=== PATIENT | female | born 1970 | race Caucasian/White ===

== ENCOUNTER 2024-09-06 09:14 | Emergency (ER) | payer OTHER ==
[~2024-09-06] VITALS: Ht 175.3 cm; Wt 124.7 kg
[2024-09-06 09:36] VITALS: PULSE 62; RESP 18; TEMP 98.9; O2SAT 96
== END 2024-09-06 12:25 | disposition home or self-care (01) ==
LOC: ER 09:28
DX: M25.561 Pain in right knee (principal); I10 Essential (primary) hypertension; E78.5 Hyperlipidemia, unspecified; E03.9 Hypothyroidism, unspecified; K21.9 Gastro-esophageal reflux disease without esophagitis; Z86.711 Personal history of pulmonary embolism; Z86.718 Personal history of other venous thrombosis and embolism
CPT/HCPCS: 93971; 99283